=== PATIENT | female | born 1955 | race Caucasian/White ===

== ENCOUNTER 2017-08-13 06:21 | Inpatient (IN) | payer OTHER ==
[2017-08-13] MEDS ORDERED: NORepinephrine 8MG/250 ML (PMX 250 ML (06:45)
[2017-08-13 07:24] LABS: ABNORMAL IP MESSAGE 1; MEAN CORPUSCULAR HEMOGLOBIN 28.1 pg (29.0-33.0); MEAN CORPUSCULAR HGB CONC 29.1 g/dl (32.0-37.0); MEAN CORPUSCULAR VOLUME 96.5 fl (82.0-101.0); MEAN PLATELET VOLUME 9.1 fl (7.4-10.4); NUCLEATED RED BLOOD CELLS% 0.4 /100WBC (0.0-0.0); PLATELET COUNT 414 10^3/UL (140-415); RED BLOOD COUNT 2.28 10^6/ul (4.20-5.40); RED CELL DISTRIBUTION WIDTH 17.8 % (11.5-14.5)
[2017-08-13 07:24] LABS: WHITE BLOOD COUNT 25.6 10^3/ul (4.8-10.8)
[2017-08-13 07:38] LABS: ADD MAN DIFF? YES; HEMOGLOBIN 6.4 g/dl (12.0-16.0); POSITIVE DIFF @See below
[2017-08-13 07:40] LABS: ALANINE AMINOTRANSFERASE 98 IU/L (13-69); ALBUMIN 3.1 g/dl (3.3-4.9); ALBUMIN/GLOBULIN RATIO 0.72; ALKALINE PHOSPHATASE 408 IU/L (42-121); ANION GAP 26 (8-16); ASPARTATE AMINO TRANSFERASE 362 IU/L (15-46); BLOOD UREA NITROGEN 45 mg/dl (7-20); CALCIUM 12.2 mg/dl (8.4-10.2); CARBON DIOXIDE 21 mmol/L (21-31); CHLORIDE 99 mmol/L (97-110); CREATININE 4.22 mg/dl (0.44-1.00); LIPASE 99 U/L (23-300); SODIUM 140 mmol/L (135-144); TOTAL PROTEIN 7.4 g/dl (6.1-8.1)
[2017-08-13 07:49] LABS: TROPONIN-I 0.107 ng/ml (0.000-0.120)
[2017-08-13 07:57] LABS: GLUCOSE 46 mg/dl (70-220); POTASSIUM 6.2 mmol/L (3.5-5.1)
[2017-08-13] MEDS ORDERED: DEXTROSE 50% 50 ML SYRINGE IV ×4 (08:00→10:30)
[2017-08-13 08:04] LABS: ANISOCYTOSIS 1+ (0-0); BAND NEUTROPHILS #M 1.5 10^3/ul (0.0-0.6); BAND NEUTROPHILS % (M) 6 % (0-4); EOSINOPHILS % (M) 3 % (0-7); ERYTHROBLAST% (NRBC) (M) 1 % (0-0); GIANT THROMBO% (M) 2 % (0-0); LYMPHOCYTES #M 9.9 10^3/ul (0.8-2.9); LYMPHOCYTES % (M) 39 % (15-51); METAMYELOCYTES #M 0.2 10^3/ul (0.0-0.0); METAMYELOCYTES %M 1 % (0-0); MONOCYTES % (M) 8 % (0-11); MYELOCYTES #M 0.5 10^3/ul (0.0-0.0); MYELOCYTES % (M) 2 % (0-0); PLATELET ESTIMATE NORMAL; POIKILOCYTOSIS 1+ (0-0); POLYCHROMASIA 1+ (0-0); RBC MORPHOLOGY COMMENT @See below; SEG NEUT #M 10.9 10^3/ul (1.6-7.5); SEGMENTED NEUTROPHILS (M) % 41 % (39-77); SMUDGE%M 7 % (0-0); WBC MORPHOLOGY COMMENT @See below
[2017-08-13] MEDS: DEXTROSE 50% 50 ML SYRINGE IV (08:08)
[2017-08-13] MEDS: INSULIN REGULAR, HUMAN 100 UNIT/1 ML 3ML VIAL IVP (08:09)
[2017-08-13] MEDS: ALBUTEROL 0.083% (NEB) 2.5 MG/3 ML AMP HHN (08:15)
[2017-08-13] MEDS ORDERED: morphine 2 MG INJ IV (08:30)
[2017-08-13] MEDS ORDERED: ALBUTEROL HFA 8 GM INHALER INH (08:30)
[2017-08-13] MEDS ORDERED: ONDANSETRON 4 MG INJ IV (08:30)
[2017-08-13] MEDS: NORepinephrine 8MG/250 ML (PMX 250 ML IV (08:41)
[2017-08-13] MEDS: HYPOGLYCEMIA PROTOCOL when Glucose is <70 mg/dL or symptomatic <90 mg/dL. XX (09:00)
[2017-08-13] MEDS ORDERED: GLUCOSE GEL 15 GRAM TUBE BUCCAL (09:00)
[2017-08-13] MEDS ORDERED: GLUCAGON 1 MG INJ IM (09:00)
[2017-08-13] MEDS ORDERED: GLUCOSE GEL 15 GRAM TUBE PO ×2 (09:00)
[2017-08-13] MEDS: SOD CHLORIDE 0.9% 1,000 ML IV (09:30)
[2017-08-13 09:49] LABS: AADO2 Arterial 166.9 mmHg (7.0-24.0); Arterial Base Excess -1.2 mmol/L (-3.0-3); Arterial Blood Gas Oxygen Sat 99.7 mmHG (95.0-98.0); Arterial COHb 0.3 % (0.0-3.0); Arterial Fraction of Oxyhgb 98.9 % (93.0-99.0); Arterial HCO3 21.1 mmol/L (22.0-26.0); Arterial MetHb 0.5 % (0.0-1.5); Arterial pCO2 25.4 mmhg (35-45); MODE VENT - AC; Site Right Brachial
[2017-08-13 10:05] LABS: HEMOGLOBIN A1C 5.4 % (0-5.9)
[2017-08-13] MEDS ORDERED: ACETAMINOPHEN 650MG/20.3ML CUP PO (10:30)
[2017-08-13] MEDS ORDERED: ACETAMINOPHEN 650 MG SUPP PR (10:30)
[2017-08-13] MEDS ORDERED: PROPOFOL 100 ML IV (10:30)
[2017-08-13] MEDS ORDERED: Treatment of Hypoglycemia: XX (10:30)
[2017-08-13] MEDS ORDERED: MIDAZOLAM (DRIP) 50 mg/50 mL 50 ML IV (10:30)
[2017-08-13] MEDS ORDERED: MEPERIDINE 25 MG INJ IV ×2 (10:30)
[2017-08-13] MEDS: PROPOFOL 100 ML IV ×2 (11:34→18:16)
[2017-08-13] MEDS: VECURONIUM 100 MG in DEXTROSE 5% 100 ML IV (11:34)
[2017-08-13] MEDS: GABAPENTIN 100 MG CAP PO ×3 (11:58→21:00)
[2017-08-13] MEDS: ASPIRIN (EC) 81 MG TAB PO (11:58)
[2017-08-13] MEDS: Discontinue all previous diabetes medication and insulin orders. XX (11:58)
[2017-08-13] MEDS: ACCU-CHEK XX ×14 (11:59→23:30)
[2017-08-13] MEDS ORDERED: OCULAR LUBRICANT 3.5 GM OPH OINT BOTH EYES (12:00)
[2017-08-13] MEDS: ARTIFICIAL TEARS 15 ML OPH BOTH EYES ×2 (12:00→18:30)
[2017-08-13] MEDS: DEXTROSE 5%-0.45% NACL 1,000 ML IV (12:15)
[2017-08-13 12:37] LABS: WHITE BLOOD COUNT 31.3 10^3/ul (4.8-10.8)
[2017-08-13 12:37] LABS: ABNORMAL IP MESSAGE 1; HEMATOCRIT 24.1 % (37.0-47.0); HEMOGLOBIN 7.6 g/dl (12.0-16.0); MEAN CORPUSCULAR HEMOGLOBIN 28.7 pg (29.0-33.0); MEAN CORPUSCULAR HGB CONC 31.5 g/dl (32.0-37.0); MEAN CORPUSCULAR VOLUME 90.9 fl (82.0-101.0); MEAN PLATELET VOLUME 8.8 fl (7.4-10.4); NUCLEATED RED BLOOD CELLS% 0.1 /100WBC (0.0-0.0); PLATELET COUNT 396 10^3/UL (140-415); RED BLOOD COUNT 2.65 10^6/ul (4.20-5.40); RED CELL DISTRIBUTION WIDTH 16.9 % (11.5-14.5)
[2017-08-13 12:46] LABS: POSITIVE DIFF @See below
[2017-08-13 12:47] LABS: ADD MAN DIFF? YES
[2017-08-13 12:54] LABS: CREATINE KINASE 66 IU/L (23-200)
[2017-08-13 12:55] LABS: LACTATE DEHYDROGENASE 1730 IU/L (313-618); LIPASE 86 U/L (23-300)
[2017-08-13 12:56] LABS: ALANINE AMINOTRANSFERASE 150 IU/L (13-69); ALBUMIN 3.1 g/dl (3.3-4.9); ALBUMIN/GLOBULIN RATIO 0.68; ALKALINE PHOSPHATASE 420 IU/L (42-121); AMYLASE 215 U/L (11-123); ANION GAP 20 (8-16); ASPARTATE AMINO TRANSFERASE 501 IU/L (15-46); BILIRUBIN,INDIRECT 0.2 mg/dl (0-1.1); BILIRUBIN,TOTAL 0.2 mg/dl (0.2-1.3); BLOOD UREA NITROGEN 50 mg/dl (7-20); CALCIUM 9.8 mg/dl (8.4-10.2); CARBON DIOXIDE 27 mmol/L (21-31); CHLORIDE 95 mmol/L (97-110); GLUCOSE 143 mg/dl (70-220); PHOSPHORUS 8.3 mg/dl (2.5-4.9); POTASSIUM 5.4 mmol/L (3.5-5.1); SODIUM 137 mmol/L (135-144); TOTAL PROTEIN 7.6 g/dl (6.1-8.1)
[2017-08-13 12:57] LABS: PROTIME 17.4 Sec (11.9-14.9); PT RATIO 1.4
[2017-08-13 12:58] LABS: PARTIAL THROMBOPLASTIN TIME 43.1 Sec (25.0-35.0)
[2017-08-13 13:06] LABS: CK INDEX 4.5; CK-MB 2.96 ng/ml (0.0-2.4)
[2017-08-13 13:11] LABS: TROPONIN-I 0.142 ng/ml (0.000-0.120)
[2017-08-13 13:23] LABS: IRON 110 ug/dl (35-150)
[2017-08-13] MEDS: INSULIN HUMAN REGULAR 100 UNIT in SOD CHLORIDE 0.9% 99 ML IV (13:28)
[2017-08-13 13:32] LABS: % IRON SATURATION 73 % SAT (22-52); TOTAL IRON BINDING CAPACITY 151 ug/dl (241-421)
[2017-08-13 14:04] LABS: ANISOCYTOSIS 1+ (0-0); BAND NEUTROPHILS #M 0.6 10^3/ul (0.0-0.6); BAND NEUTROPHILS % (M) 2 % (0-4); GIANT THROMBO% (M) 1 % (0-0); HYPOCHROMASIA 1+ (0-0); LYMPHOCYTES #M 2.1 10^3/ul (0.8-2.9); LYMPHOCYTES % (M) 7 % (15-51); METAMYELOCYTES #M 0.3 10^3/ul (0.0-0.0); METAMYELOCYTES %M 1 % (0-0); MONOCYTE #M 1.8 10^3/ul (0.3-0.9); MONOCYTES % (M) 6 % (0-11); MYELOCYTES #M 0.3 10^3/ul (0.0-0.0); MYELOCYTES % (M) 1 % (0-0); PLATELET ESTIMATE NORMAL; POIKILOCYTOSIS 1+ (0-0); POLYCHROMASIA 1+ (0-0); SEG NEUT #M 26.5 10^3/ul (1.6-7.5); SEGMENTED NEUTROPHILS (M) % 84 % (39-77)
[2017-08-13 15:26] LABS: IMMEDIATE SPIN CROSSMATCH 1 2
[2017-08-13 17:00] LABS: AADO2 Arterial 157.1 mmHg (7.0-24.0); Arterial Base Excess 0.4 mmol/L (-3.0-3); Arterial Blood Gas Oxygen Sat 97.1 mmHG (95.0-98.0); Arterial COHb 0.3 % (0.0-3.0); Arterial Fraction of Oxyhgb 96.5 % (93.0-99.0); Arterial HCO3 21.5 mmol/L (22.0-26.0); Arterial MetHb 0.3 % (0.0-1.5); Arterial Total Hemglobin 9.2 g/dl (12.0-18.0); Arterial pCO2 19.4 mmhg (35-45); MODE VENT - AC; Site LB; Temperature 32.8 C
[2017-08-13] MEDS ORDERED: PENDING SANTYL ORDER FOR WOUND CARE XX (17:00)
[2017-08-13 18:33] LABS: ADD MAN DIFF? NO
[2017-08-13 18:35] LABS: ABNORMAL IP MESSAGE 1; BASOPHIL # 0.1 10^3/ul (0.0-0.1); BASOPHILS % 0.3 % (0.0-2.0); HEMATOCRIT 27.9 % (37.0-47.0); HEMOGLOBIN 9.5 g/dl (12.0-16.0); LYMPHOCYTES # 1.4 10^3/ul (0.8-2.9); LYMPHOCYTES % 5.3 % (15.0-51.0); MEAN CORPUSCULAR HEMOGLOBIN 29.8 pg (29.0-33.0); MEAN CORPUSCULAR HGB CONC 34.1 g/dl (32.0-37.0); MEAN CORPUSCULAR VOLUME 87.5 fl (82.0-101.0); MEAN PLATELET VOLUME 8.7 fl (7.4-10.4); MONOCYTE # 1.2 10^3/ul (0.3-0.9); MONOCYTES % 4.3 % (0.0-11.0); NEUTROPHIL # 23.7 10^3/ul (1.6-7.5); NEUTROPHILS % 87.9 % (39.0-77.0); PLATELET COUNT 399 10^3/UL (140-415); RED BLOOD COUNT 3.19 10^6/ul (4.20-5.40)
[2017-08-13 18:35] LABS: WHITE BLOOD COUNT 26.9 10^3/ul (4.8-10.8)
[2017-08-13 18:46] LABS: POSITIVE DIFF @See below
[2017-08-13 18:56] LABS: INR 1.44; PROTIME 17.8 Sec (11.9-14.9); PT RATIO 1.4
[2017-08-13 18:58] LABS: CREATINE KINASE 74 IU/L (23-200)
[2017-08-13 19:00] LABS: ALANINE AMINOTRANSFERASE 129 IU/L (13-69); ALBUMIN 2.7 g/dl (3.3-4.9); ALBUMIN/GLOBULIN RATIO 0.67; ALKALINE PHOSPHATASE 377 IU/L (42-121); AMYLASE 222 U/L (11-123); ANION GAP 18 (8-16); ASPARTATE AMINO TRANSFERASE 273 IU/L (15-46); BLOOD UREA NITROGEN 57 mg/dl (7-20); CALCIUM 9.4 mg/dl (8.4-10.2); CARBON DIOXIDE 27 mmol/L (21-31); CHLORIDE 98 mmol/L (97-110); CREATININE 4.14 mg/dl (0.44-1.00); GLUCOSE 188 mg/dl (70-220); LACTATE DEHYDROGENASE 1147 IU/L (313-618); LIPASE 46 U/L (23-300); POTASSIUM 4.7 mmol/L (3.5-5.1); SODIUM 138 mmol/L (135-144); TOTAL PROTEIN 6.7 g/dl (6.1-8.1)
[2017-08-13 19:13] LABS: CK INDEX 5.1; CK-MB 3.76 ng/ml (0.0-2.4); TROPONIN-I 0.112 ng/ml (0.000-0.120)
[2017-08-13 22:14] LABS: Arterial Base Excess -0.7 mmol/L (-3.0-3); Arterial Blood Gas Oxygen Sat 99.6 mmHG (95.0-98.0); Arterial COHb 0.3 % (0.0-3.0); Arterial HCO3 21.2 mmol/L (22.0-26.0); Arterial MetHb 0.3 % (0.0-1.5); Arterial Total Hemglobin 10.8 g/dl (12.0-18.0); Arterial pCO2 22.2 mmhg (35-45); MODE VENT - AC; Site Right Brachial; Temperature 32.9 C
[2017-08-13 22:31] LABS: ADD MAN DIFF? NO
[2017-08-13 22:36] LABS: WHITE BLOOD COUNT 27.7 10^3/ul (4.8-10.8)
[2017-08-13 22:36] LABS: ABNORMAL IP MESSAGE 1; BASOPHIL # 0.1 10^3/ul (0.0-0.1); BASOPHILS % 0.3 % (0.0-2.0); HEMATOCRIT 28.5 % (37.0-47.0); HEMOGLOBIN 9.6 g/dl (12.0-16.0); LYMPHOCYTES # 1.6 10^3/ul (0.8-2.9); LYMPHOCYTES % 5.6 % (15.0-51.0); MEAN CORPUSCULAR HEMOGLOBIN 29.4 pg (29.0-33.0); MEAN CORPUSCULAR HGB CONC 33.7 g/dl (32.0-37.0); MEAN CORPUSCULAR VOLUME 87.4 fl (82.0-101.0); MEAN PLATELET VOLUME 8.8 fl (7.4-10.4); MONOCYTE # 1.7 10^3/ul (0.3-0.9); MONOCYTES % 6.3 % (0.0-11.0); NEUTROPHIL # 23.7 10^3/ul (1.6-7.5); NEUTROPHILS % 85.5 % (39.0-77.0); PLATELET COUNT 416 10^3/UL (140-415); RED BLOOD COUNT 3.26 10^6/ul (4.20-5.40); RED CELL DISTRIBUTION WIDTH 16.2 % (11.5-14.5)
[2017-08-13 22:39] LABS: POSITIVE DIFF @See below
[2017-08-13 22:57] LABS: MAGNESIUM 2.1 mg/dl (1.7-2.5)
[2017-08-13 22:57] LABS: LACTATE DEHYDROGENASE 880 IU/L (313-618); LIPASE 39 U/L (23-300)
[2017-08-13] MEDS: ALBUMIN HUMAN 25% 100 ML IV (23:52)
[2017-08-13] MEDS: FUROSEMIDE 40 MG INJ IV (23:53)
[2017-08-13] MEDS: SOD CHLORIDE 0.9% 500 ML IV (23:54)
[2017-08-14] MEDS: ACCU-CHEK XX ×24 (00:30→23:30)
[2017-08-14] MEDS: DEXTROSE 5%-0.45% NACL 1,000 ML IV ×3 (00:56→11:10)
[2017-08-14] MEDS: ARTIFICIAL TEARS 15 ML OPH BOTH EYES ×4 (00:56→18:04)
[2017-08-14] MEDS: PROPOFOL 100 ML IV ×3 (00:57→11:17)
[2017-08-14 01:13] LABS: CREATINE KINASE 61 IU/L (23-200)
[2017-08-14 01:17] LABS: ALANINE AMINOTRANSFERASE 101 IU/L (13-69); ALBUMIN 2.9 g/dl (3.3-4.9); ALBUMIN/GLOBULIN RATIO 0.74; ALKALINE PHOSPHATASE 295 IU/L (42-121); AMYLASE 201 U/L (11-123); ANION GAP 18 (8-16); ASPARTATE AMINO TRANSFERASE 147 IU/L (15-46); BLOOD UREA NITROGEN 59 mg/dl (7-20); CALCIUM 9.3 mg/dl (8.4-10.2); CARBON DIOXIDE 26 mmol/L (21-31); CHLORIDE 98 mmol/L (97-110); CREATININE 4.18 mg/dl (0.44-1.00); GLUCOSE 84 mg/dl (70-220); PHOSPHORUS 7.3 mg/dl (2.5-4.9); POTASSIUM 4.6 mmol/L (3.5-5.1); SODIUM 137 mmol/L (135-144); TOTAL PROTEIN 6.8 g/dl (6.1-8.1)
[2017-08-14 01:18] LABS: INR 1.53; PROTIME 18.7 Sec (11.9-14.9); PT RATIO 1.5
[2017-08-14 01:19] LABS: PARTIAL THROMBOPLASTIN TIME 43.2 Sec (25.0-35.0)
[2017-08-14 01:27] LABS: CK INDEX 5.8; CK-MB 3.53 ng/ml (0.0-2.4); TROPONIN-I 0.086 ng/ml (0.000-0.120)
[2017-08-14 04:26] LABS: AADO2 Arterial 263.3 mmHg (7.0-24.0); Arterial Base Excess -4.2 mmol/L (-3.0-3); Arterial Blood Gas Oxygen Sat 99.5 mmHG (95.0-98.0); Arterial COHb 0.3 % (0.0-3.0); Arterial Fraction of Oxyhgb 98.8 % (93.0-99.0); Arterial HCO3 21.8 mmol/L (22.0-26.0); Arterial MetHb 0.4 % (0.0-1.5); Arterial Total Hemglobin 9.4 g/dl (12.0-18.0); Arterial pCO2 36.9 mmhg (35-45); MODE VENT - AC; Site Right Brachial; Temperature 33.1 C
[2017-08-14 05:14] LABS: ADD MAN DIFF? NO
[2017-08-14 05:19] LABS: ABNORMAL IP MESSAGE 1; BASOPHIL # 0.1 10^3/ul (0.0-0.1); BASOPHILS % 0.3 % (0.0-2.0); EOSINOPHILS # 0.1 10^3/ul (0.0-0.5); EOSINOPHILS % 0.3 % (0.0-7.0); HEMATOCRIT 25.3 % (37.0-47.0); HEMOGLOBIN 8.5 g/dl (12.0-16.0); LYMPHOCYTES # 1.3 10^3/ul (0.8-2.9); LYMPHOCYTES % 4.8 % (15.0-51.0); MEAN CORPUSCULAR HEMOGLOBIN 29.8 pg (29.0-33.0); MEAN CORPUSCULAR HGB CONC 33.6 g/dl (32.0-37.0); MEAN CORPUSCULAR VOLUME 88.8 fl (82.0-101.0); MEAN PLATELET VOLUME 8.9 fl (7.4-10.4); MONOCYTE # 1.9 10^3/ul (0.3-0.9); NEUTROPHIL # 23.8 10^3/ul (1.6-7.5); PLATELET COUNT 350 10^3/UL (140-415); RED BLOOD COUNT 2.85 10^6/ul (4.20-5.40); RED CELL DISTRIBUTION WIDTH 16.3 % (11.5-14.5)
[2017-08-14 05:19] LABS: WHITE BLOOD COUNT 27.7 10^3/ul (4.8-10.8)
[2017-08-14 05:39] LABS: URIC ACID 6.2 mg/dl (3.1-7.9)
[2017-08-14 05:41] LABS: INR 1.56; PARTIAL THROMBOPLASTIN TIME 48.6 Sec (25.0-35.0); PT RATIO 1.5
[2017-08-14 05:45] LABS: MAGNESIUM 1.9 mg/dl (1.7-2.5)
[2017-08-14 05:45] LABS: LACTATE DEHYDROGENASE 663 IU/L (313-618); LIPASE 16 U/L (23-300)
[2017-08-14 05:53] LABS: POSITIVE DIFF @See below
[2017-08-14 06:02] LABS: ALANINE AMINOTRANSFERASE 82 IU/L (13-69); ALBUMIN 2.5 g/dl (3.3-4.9); ALBUMIN/GLOBULIN RATIO 0.71; ALKALINE PHOSPHATASE 268 IU/L (42-121); AMYLASE 178 U/L (11-123); ANION GAP 16 (8-16); ASPARTATE AMINO TRANSFERASE 116 IU/L (15-46); BLOOD UREA NITROGEN 58 mg/dl (7-20); CALCIUM 8.8 mg/dl (8.4-10.2); CARBON DIOXIDE 27 mmol/L (21-31); CHLORIDE 97 mmol/L (97-110); CREATININE 4.11 mg/dl (0.44-1.00); GLUCOSE 129 mg/dl (70-220); HDL CHOLESTEROL 16 mg/dl (35-98); PHOSPHORUS 7.4 mg/dl (2.5-4.9); POTASSIUM 4.4 mmol/L (3.5-5.1); SODIUM 136 mmol/L (135-144); TRIGLYCERIDES 41 mg/dl (0-149)
[2017-08-14 06:04] LABS: CHOLESTEROL < 50 mg/dl (100-200)
[2017-08-14] MEDS: DEXTROSE 50% 50 ML SYRINGE IV (08:09)
[2017-08-14] MEDS: ASPIRIN (EC) 81 MG TAB PO (08:12)
[2017-08-14] MEDS: GABAPENTIN 100 MG CAP PO ×3 (08:12→21:00)
[2017-08-14] MEDS: MULTIVIT/CA CARB/B CMPLX/FA TAB PO (08:12)
[2017-08-14] MEDS: FAMOTIDINE 20 MG INJ IV (08:15)
[2017-08-14] MEDS ORDERED: VANCOMYCIN IV PER PHARMACY XX (09:30)
[2017-08-14] MEDS: VANCOMYCIN 1 GM 250 ML IVPB (09:48)
[2017-08-14] MEDS: VECURONIUM 100 MG in DEXTROSE 5% 100 ML IV (09:59)
[2017-08-14 10:18] LABS: ADD MAN DIFF? NO
[2017-08-14 10:19] LABS: WHITE BLOOD COUNT 26.6 10^3/ul (4.8-10.8)
[2017-08-14 10:20] LABS: ABNORMAL IP MESSAGE 1; BASOPHIL # 0.1 10^3/ul (0.0-0.1); BASOPHILS % 0.3 % (0.0-2.0); EOSINOPHILS # 0.1 10^3/ul (0.0-0.5); EOSINOPHILS % 0.4 % (0.0-7.0); HEMATOCRIT 25.9 % (37.0-47.0); HEMOGLOBIN 8.5 g/dl (12.0-16.0); LYMPHOCYTES # 1.3 10^3/ul (0.8-2.9); LYMPHOCYTES % 4.7 % (15.0-51.0); MEAN CORPUSCULAR HEMOGLOBIN 28.8 pg (29.0-33.0); MEAN CORPUSCULAR HGB CONC 32.8 g/dl (32.0-37.0); MEAN CORPUSCULAR VOLUME 87.8 fl (82.0-101.0); MEAN PLATELET VOLUME 8.5 fl (7.4-10.4); MONOCYTE # 1.1 10^3/ul (0.3-0.9); MONOCYTES % 4.1 % (0.0-11.0); NEUTROPHIL # 23.8 10^3/ul (1.6-7.5); NEUTROPHILS % 89.3 % (39.0-77.0); PLATELET COUNT 331 10^3/UL (140-415); RED BLOOD COUNT 2.95 10^6/ul (4.20-5.40); RED CELL DISTRIBUTION WIDTH 16.5 % (11.5-14.5)
[2017-08-14] MEDS ORDERED: ACETAMINOPHEN 650MG/20.3ML CUP PO (10:30)
[2017-08-14 10:37] LABS: INR 1.49; PROTIME 18.3 Sec (11.9-14.9); PT RATIO 1.4
[2017-08-14 10:38] LABS: PARTIAL THROMBOPLASTIN TIME 46.8 Sec (25.0-35.0)
[2017-08-14 10:41] LABS: ALANINE AMINOTRANSFERASE 70 IU/L (13-69); ALBUMIN 2.5 g/dl (3.3-4.9); ALBUMIN/GLOBULIN RATIO 0.67; ALKALINE PHOSPHATASE 256 IU/L (42-121); AMYLASE 166 U/L (11-123); ANION GAP 19 (8-16); ASPARTATE AMINO TRANSFERASE 93 IU/L (15-46); BILIRUBIN,INDIRECT 0.1 mg/dl (0-1.1); BILIRUBIN,TOTAL 0.1 mg/dl (0.2-1.3); BLOOD UREA NITROGEN 58 mg/dl (7-20); CALCIUM 8.7 mg/dl (8.4-10.2); CARBON DIOXIDE 25 mmol/L (21-31); CHLORIDE 95 mmol/L (97-110); CREATININE 4.14 mg/dl (0.44-1.00); GLUCOSE 129 mg/dl (70-220); PHOSPHORUS 7.9 mg/dl (2.5-4.9); POTASSIUM 4.6 mmol/L (3.5-5.1); SODIUM 134 mmol/L (135-144); TOTAL PROTEIN 6.2 g/dl (6.1-8.1)
[2017-08-14 10:43] LABS: LACTATE DEHYDROGENASE 501 IU/L (313-618); LIPASE 21 U/L (23-300)
[2017-08-14 10:43] LABS: MAGNESIUM 1.9 mg/dl (1.7-2.5)
[2017-08-14 11:01] LABS: AADO2 Arterial 196.7 mmHg (7.0-24.0); Arterial Base Excess -3.6 mmol/L (-3.0-3); Arterial COHb 0.3 % (0.0-3.0); Arterial Fraction of Oxyhgb 98.4 % (93.0-99.0); Arterial HCO3 22.6 mmol/L (22.0-26.0); Arterial MetHb 0.3 % (0.0-1.5); Arterial Total Hemglobin 10.5 g/dl (12.0-18.0); Arterial pCO2 38.1 mmhg (35-45); MODE VENT - AC; Site Right Brachial
[2017-08-14] MEDS: ACETAMINOPHEN 650 MG SUPP PR ×3 (11:10→23:45)
[2017-08-14] MEDS: SOD CHLORIDE 0.9% 1,000 ML IV (11:27)
[2017-08-14 12:21] LABS: TROPONIN-I 0.073 ng/ml (0.000-0.120)
[2017-08-14] MEDS ORDERED: SOD CHLORIDE 0.9% 1,000 ML IV (16:02)
[2017-08-14 16:24] LABS: ADD MAN DIFF? NO
[2017-08-14 16:28] LABS: BASOPHIL # 0.1 10^3/ul (0.0-0.1); BASOPHILS % 0.2 % (0.0-2.0); EOSINOPHILS # 0.1 10^3/ul (0.0-0.5); EOSINOPHILS % 0.4 % (0.0-7.0); HEMATOCRIT 26.8 % (37.0-47.0); HEMOGLOBIN 8.9 g/dl (12.0-16.0); LYMPHOCYTES # 1.1 10^3/ul (0.8-2.9); LYMPHOCYTES % 4.3 % (15.0-51.0); MEAN CORPUSCULAR HEMOGLOBIN 29.1 pg (29.0-33.0); MEAN CORPUSCULAR HGB CONC 33.2 g/dl (32.0-37.0); MEAN CORPUSCULAR VOLUME 87.6 fl (82.0-101.0); MEAN PLATELET VOLUME 8.5 fl (7.4-10.4); MONOCYTE # 1.3 10^3/ul (0.3-0.9); NEUTROPHIL # 22.8 10^3/ul (1.6-7.5); NEUTROPHILS % 89.1 % (39.0-77.0); PLATELET COUNT 344 10^3/UL (140-415); RED BLOOD COUNT 3.06 10^6/ul (4.20-5.40); RED CELL DISTRIBUTION WIDTH 16.8 % (11.5-14.5)
[2017-08-14] MEDS ORDERED: ALBUMIN HUMAN 25% 100 ML IV (16:30)
[2017-08-14 16:31] LABS: AADO2 Arterial 149.1 mmHg (7.0-24.0); Arterial Base Excess -3.6 mmol/L (-3.0-3); Arterial COHb 0.3 % (0.0-3.0); Arterial Fraction of Oxyhgb 97.6 % (93.0-99.0); Arterial HCO3 20.5 mmol/L (22.0-26.0); Arterial MetHb 0.1 % (0.0-1.5); Arterial Total Hemglobin 10.1 g/dl (12.0-18.0); Arterial pCO2 29.3 mmhg (35-45); MODE VENT - AC; Site Right Brachial; Temperature 33.9 C
[2017-08-14 16:32] LABS: WHITE BLOOD COUNT 25.6 10^3/ul (4.8-10.8)
[2017-08-14 16:53] LABS: INR 1.44; PROTIME 17.8 Sec (11.9-14.9); PT RATIO 1.4
[2017-08-14 16:54] LABS: PARTIAL THROMBOPLASTIN TIME 48.1 Sec (25.0-35.0)
[2017-08-14 16:55] LABS: MAGNESIUM 1.8 mg/dl (1.7-2.5)
[2017-08-14 16:55] LABS: ALANINE AMINOTRANSFERASE 70 IU/L (13-69); ALBUMIN 2.6 g/dl (3.3-4.9); ALBUMIN/GLOBULIN RATIO 0.68; ALKALINE PHOSPHATASE 259 IU/L (42-121); AMYLASE 151 U/L (11-123); ANION GAP 19 (8-16); ASPARTATE AMINO TRANSFERASE 74 IU/L (15-46); BILIRUBIN,INDIRECT 0.1 mg/dl (0-1.1); BILIRUBIN,TOTAL 0.1 mg/dl (0.2-1.3); BLOOD UREA NITROGEN 55 mg/dl (7-20); CALCIUM 8.5 mg/dl (8.4-10.2); CARBON DIOXIDE 21 mmol/L (21-31); CHLORIDE 97 mmol/L (97-110); CREATININE 4.11 mg/dl (0.44-1.00); GLUCOSE 103 mg/dl (70-220); LACTATE DEHYDROGENASE 431 IU/L (313-618); LIPASE 20 U/L (23-300); POTASSIUM 5.2 mmol/L (3.5-5.1); SODIUM 132 mmol/L (135-144); TOTAL PROTEIN 6.4 g/dl (6.1-8.1)
[2017-08-14 17:06] LABS: TROPONIN-I 0.066 ng/ml (0.000-0.120)
[2017-08-14 22:49] LABS: ADD MAN DIFF? NO
[2017-08-14 22:52] LABS: BASOPHIL # 0.1 10^3/ul (0.0-0.1); BASOPHILS % 0.3 % (0.0-2.0); EOSINOPHILS # 0.1 10^3/ul (0.0-0.5); EOSINOPHILS % 0.2 % (0.0-7.0); HEMATOCRIT 27.4 % (37.0-47.0); LYMPHOCYTES # 1.1 10^3/ul (0.8-2.9); LYMPHOCYTES % 4.8 % (15.0-51.0); MEAN CORPUSCULAR HEMOGLOBIN 28.8 pg (29.0-33.0); MEAN CORPUSCULAR HGB CONC 32.8 g/dl (32.0-37.0); MEAN CORPUSCULAR VOLUME 87.8 fl (82.0-101.0); MEAN PLATELET VOLUME 8.9 fl (7.4-10.4); MONOCYTE # 1.2 10^3/ul (0.3-0.9); MONOCYTES % 5.4 % (0.0-11.0); NEUTROPHIL # 19.5 10^3/ul (1.6-7.5); NEUTROPHILS % 88.5 % (39.0-77.0); PLATELET COUNT 370 10^3/UL (140-415); RED BLOOD COUNT 3.12 10^6/ul (4.20-5.40); RED CELL DISTRIBUTION WIDTH 16.8 % (11.5-14.5)
[2017-08-14 23:10] LABS: LACTATE DEHYDROGENASE 414 IU/L (313-618); LIPASE 15 U/L (23-300)
[2017-08-14 23:10] LABS: MAGNESIUM 1.8 mg/dl (1.7-2.5)
[2017-08-15 00:19] LABS: AADO2 Arterial 130.5 mmHg (7.0-24.0); Arterial Base Excess -3.4 mmol/L (-3.0-3); Arterial Blood Gas Oxygen Sat 98.4 mmHG (95.0-98.0); Arterial COHb 0.3 % (0.0-3.0); Arterial Fraction of Oxyhgb 97.8 % (93.0-99.0); Arterial HCO3 19.6 mmol/L (22.0-26.0); Arterial MetHb 0.3 % (0.0-1.5); Arterial Total Hemglobin 10.1 g/dl (12.0-18.0); Arterial pCO2 27.6 mmhg (35-45); MODE VENT - AC; Site Right Brachial; Temperature 36.1 C
[2017-08-15] MEDS: ACETAMINOPHEN 650 MG SUPP PR ×4 (00:25→18:46)
[2017-08-15] MEDS: ARTIFICIAL TEARS 15 ML OPH BOTH EYES ×4 (00:40→18:46)
[2017-08-15] MEDS: ACCU-CHEK XX ×17 (01:11→15:52)
[2017-08-15] MEDS: DEXTROSE 5%-0.45% NACL 1,000 ML IV ×2 (01:13→13:31)
[2017-08-15 01:28] LABS: TROPONIN-I 0.079 ng/ml (0.000-0.120)
[2017-08-15 05:40] LABS: ADD MAN DIFF? NO
[2017-08-15 05:53] LABS: BASOPHIL # 0.1 10^3/ul (0.0-0.1); BASOPHILS % 0.2 % (0.0-2.0); EOSINOPHILS % 0.1 % (0.0-7.0); HEMATOCRIT 27.6 % (37.0-47.0); HEMOGLOBIN 9.2 g/dl (12.0-16.0); LYMPHOCYTES % 4.7 % (15.0-51.0); MEAN CORPUSCULAR HGB CONC 33.3 g/dl (32.0-37.0); MEAN CORPUSCULAR VOLUME 87.1 fl (82.0-101.0); MONOCYTE # 1.4 10^3/ul (0.3-0.9); MONOCYTES % 6.6 % (0.0-11.0); NEUTROPHIL # 18.7 10^3/ul (1.6-7.5); NEUTROPHILS % 87.6 % (39.0-77.0); NUCLEATED RED BLOOD CELLS% 0.1 /100WBC (0.0-0.0); PLATELET COUNT 400 10^3/UL (140-415); RED BLOOD COUNT 3.17 10^6/ul (4.20-5.40)
[2017-08-15 05:53] LABS: WHITE BLOOD COUNT 21.3 10^3/ul (4.8-10.8)
[2017-08-15 06:02] LABS: AADO2 Arterial 113.2 mmHg (7.0-24.0); Arterial Base Excess -4.5 mmol/L (-3.0-3); Arterial COHb 0 % (0.0-3.0); Arterial Fraction of Oxyhgb 97.6 % (93.0-99.0); Arterial HCO3 17.8 mmol/L (22.0-26.0); Arterial MetHb 0.4 % (0.0-1.5); Arterial Total Hemglobin 10.1 g/dl (12.0-18.0); Arterial pCO2 24.5 mmhg (35-45); MODE VENT - AC; Site Right Brachial
[2017-08-15 07:01] LABS: ALANINE AMINOTRANSFERASE 62 IU/L (13-69); ALBUMIN 2.7 g/dl (3.3-4.9); ALBUMIN/GLOBULIN RATIO 0.67; ALKALINE PHOSPHATASE 278 IU/L (42-121); ANION GAP 20 (8-16); ASPARTATE AMINO TRANSFERASE 61 IU/L (15-46); BILIRUBIN,INDIRECT 0.1 mg/dl (0-1.1); BILIRUBIN,TOTAL 0.1 mg/dl (0.2-1.3); BLOOD UREA NITROGEN 58 mg/dl (7-20); CALCIUM 8.4 mg/dl (8.4-10.2); CARBON DIOXIDE 21 mmol/L (21-31); CHLORIDE 96 mmol/L (97-110); CREATININE 4.47 mg/dl (0.44-1.00); GLUCOSE 109 mg/dl (70-220); MAGNESIUM 1.9 mg/dl (1.7-2.5); POTASSIUM 5.8 mmol/L (3.5-5.1); SODIUM 131 mmol/L (135-144); TOTAL PROTEIN 6.7 g/dl (6.1-8.1)
[2017-08-15 07:09] LABS: TROPONIN-I 0.103 ng/ml (0.000-0.120)
[2017-08-15] MEDS: VECURONIUM 100 MG in DEXTROSE 5% 100 ML IV (07:50)
[2017-08-15] MEDS: CEFEPIME 1GM/50 ML (PMX) 50 ML IVPB ×2 (09:00→09:14)
[2017-08-15] MEDS: GABAPENTIN 100 MG CAP PO ×3 (09:13→20:44)
[2017-08-15] MEDS: ASPIRIN (EC) 81 MG TAB PO (09:13)
[2017-08-15] MEDS: MULTIVIT/CA CARB/B CMPLX/FA TAB PO (09:13)
[2017-08-15] MEDS: FAMOTIDINE 20 MG INJ IV (09:21)
[2017-08-15] MEDS: BALSAM PERU/CASTOR OIL 60 GM TUBE TOP (09:21)
[2017-08-15] MEDS: PROPOFOL 100 ML IV ×2 (09:24→23:30)
[2017-08-15] MEDS: INSULIN HUMAN REGULAR 100 UNIT in SOD CHLORIDE 0.9% 99 ML IV (12:05)
[2017-08-15 12:37] LABS: ADD UMIC YES; UR ASCORBIC ACID NEGATIVE (NEGATIVE); UR BACTERIA FEW /HPF (NONE SEEN); UR BILIRUBIN (Dip) NEGATIVE (NEGATIVE); UR BLOOD (Dip) 1+ mg/dL (NEGATIVE); UR CLARITY TURBID (CLEAR); UR COLOR YELLOW (YELLOW); UR GLUCOSE (Dip) NEGATIVE (NEGATIVE); UR KETONES (Dip) NEGATIVE (NEGATIVE); UR LEUKOCYTE ESTERASE (Dip) 3+ Leu/ul (NEGATIVE); UR MUCUS FEW /HPF (NONE SEEN); UR NITRITE (Dip) NEGATIVE (NEGATIVE); UR NONSQUAMOUS EPITHELIAL CELL 7 /HPF (NONE SEEN); UR RBC 0 /HPF (0-5); UR SPECIFIC GRAVITY (Dip) 1.011 (1.003-1.030); UR TOTAL PROTEIN (Dip) 2+ mg/dl (NEGATIVE); UR UROBILINOGEN (Dip) NEGATIVE (NEGATIVE); UR WBC > 182 /HPF (0-5)
[2017-08-15] MEDS: HEPARIN 1000 UNITS/ML 10 ML INJ CATHETER (12:37)
[2017-08-15 12:47] LABS: CREATININE,URINE RANDOM 30.18 mg/dl (20-320); PROTEIN/CREAT RATIO 6.59 RATIO
[2017-08-15 13:11] LABS: SODIUM,URINE RANDOM 55 mmol/L (30-90)
[2017-08-15 13:33] LABS: TROPONIN-I 0.096 ng/ml (0.000-0.120)
[2017-08-15] MEDS: INSULIN ASPART [NOVOLOG] 3 ML PEN SC ×2 (17:00→20:50)
[2017-08-15] MEDS ORDERED: LORAZEPAM 2 MG INJ IV (19:00)
[2017-08-15 19:22] LABS: TROPONIN-I 0.103 ng/ml (0.000-0.120)
[2017-08-15] MEDS: LEVETIRACETAM 500 MG (PMX) 100 ML IVPB (19:53)
[2017-08-16] MEDS: ARTIFICIAL TEARS 15 ML OPH BOTH EYES ×3 (00:40→12:24)
[2017-08-16] MEDS: INSULIN ASPART [NOVOLOG] 3 ML PEN SC ×6 (00:52→20:26)
[2017-08-16] MEDS: DEXTROSE 5%-0.45% NACL 1,000 ML IV ×2 (03:54→16:19)
[2017-08-16 05:20] LABS: ADD MAN DIFF? NO
[2017-08-16 05:22] LABS: ABNORMAL IP MESSAGE 1; BASOPHIL # 0.1 10^3/ul (0.0-0.1); BASOPHILS % 0.4 % (0.0-2.0); EOSINOPHILS % 0.2 % (0.0-7.0); HEMATOCRIT 22.4 % (37.0-47.0); HEMOGLOBIN 7.1 g/dl (12.0-16.0); LYMPHOCYTES # 1.4 10^3/ul (0.8-2.9); LYMPHOCYTES % 6.6 % (15.0-51.0); MEAN CORPUSCULAR HEMOGLOBIN 28.5 pg (29.0-33.0); MEAN CORPUSCULAR HGB CONC 31.7 g/dl (32.0-37.0); MEAN PLATELET VOLUME 9.2 fl (7.4-10.4); MONOCYTE # 2.1 10^3/ul (0.3-0.9); MONOCYTES % 10.1 % (0.0-11.0); NEUTROPHIL # 17.2 10^3/ul (1.6-7.5); NUCLEATED RED BLOOD CELLS% 0.1 /100WBC (0.0-0.0); PLATELET COUNT 323 10^3/UL (140-415); RED BLOOD COUNT 2.49 10^6/ul (4.20-5.40); RED CELL DISTRIBUTION WIDTH 17.2 % (11.5-14.5)
[2017-08-16 05:46] LABS: VANCOMYCIN,RANDOM 8.9 ug/ml
[2017-08-16 05:56] LABS: ALANINE AMINOTRANSFERASE 47 IU/L (13-69); ALBUMIN 2.3 g/dl (3.3-4.9); ALBUMIN/GLOBULIN RATIO 0.63; ALKALINE PHOSPHATASE 255 IU/L (42-121); ANION GAP 15 (8-16); ASPARTATE AMINO TRANSFERASE 41 IU/L (15-46); BLOOD UREA NITROGEN 34 mg/dl (7-20); CALCIUM 7.9 mg/dl (8.4-10.2); CARBON DIOXIDE 26 mmol/L (21-31); CHLORIDE 102 mmol/L (97-110); CREATININE 3.21 mg/dl (0.44-1.00); GLUCOSE 123 mg/dl (70-220); MAGNESIUM 1.9 mg/dl (1.7-2.5); POTASSIUM 4.5 mmol/L (3.5-5.1); SODIUM 138 mmol/L (135-144); TOTAL PROTEIN 5.9 g/dl (6.1-8.1)
[2017-08-16 06:00] LABS: AADO2 Arterial 68.6 mmHg (7.0-24.0); Arterial Base Excess -0.3 mmol/L (-3.0-3); Arterial Blood Gas Oxygen Sat 97.5 mmHG (95.0-98.0); Arterial COHb 0.6 % (0.0-3.0); Arterial Fraction of Oxyhgb 96.8 % (93.0-99.0); Arterial HCO3 23.9 mmol/L (22.0-26.0); Arterial MetHb 0.1 % (0.0-1.5); Arterial Total Hemglobin 8.5 g/dl (12.0-18.0); Arterial pCO2 36.7 mmhg (35-45); MODE VENT - AC; Site Right Brachial
[2017-08-16 06:09] LABS: POSITIVE DIFF @See below
[2017-08-16] MEDS ORDERED: LEVETIRACETAM 500 MG (PMX) 100 ML IVPB (09:00)
[2017-08-16] MEDS: NIFEdipine (XL) 60 MG TAB PO (09:00)
[2017-08-16] MEDS: BALSAM PERU/CASTOR OIL 60 GM TUBE TOP ×2 (09:00→22:22)
[2017-08-16] MEDS: MULTIVIT/CA CARB/B CMPLX/FA TAB PO (09:12)
[2017-08-16] MEDS: FAMOTIDINE 20 MG TAB PO (09:12)
[2017-08-16] MEDS: ASPIRIN (EC) 81 MG TAB PO (09:12)
[2017-08-16] MEDS: VANCOMYCIN 1 GM 250 ML IVPB (09:12)
[2017-08-16] MEDS: CLOPIDOGREL 75 MG TAB PO (09:12)
[2017-08-16] MEDS: GABAPENTIN 100 MG CAP PO ×3 (09:12→20:21)
[2017-08-16] MEDS: CEFEPIME 1GM/50 ML (PMX) 50 ML IVPB (09:12)
[2017-08-16] MEDS: PROPOFOL 100 ML IV ×2 (11:30→23:30)
[2017-08-16 12:28] LABS: HEMATOCRIT 23.6 % (37.0-47.0); HEMOGLOBIN 7.5 g/dl (12.0-16.0)
[2017-08-17] MEDS: INSULIN ASPART [NOVOLOG] 3 ML PEN SC ×6 (00:46→21:00)
[2017-08-17] MEDS: ACETAMINOPHEN 650MG/20.3ML CUP PO (01:04)
[2017-08-17 05:33] LABS: OCCULT BLOOD STOOL NEGATIVE (NEGATIVE)
[2017-08-17 05:34] LABS: ADD MAN DIFF? NO
[2017-08-17 05:38] LABS: ABNORMAL IP MESSAGE 1; BASOPHIL # 0.1 10^3/ul (0.0-0.1); BASOPHILS % 0.5 % (0.0-2.0); EOSINOPHILS # 0.2 10^3/ul (0.0-0.5); EOSINOPHILS % 0.8 % (0.0-7.0); HEMATOCRIT 21.8 % (37.0-47.0); LYMPHOCYTES # 1.5 10^3/ul (0.8-2.9); LYMPHOCYTES % 6.5 % (15.0-51.0); MEAN CORPUSCULAR HEMOGLOBIN 28.6 pg (29.0-33.0); MEAN CORPUSCULAR HGB CONC 31.7 g/dl (32.0-37.0); MEAN CORPUSCULAR VOLUME 90.5 fl (82.0-101.0); MEAN PLATELET VOLUME 9.1 fl (7.4-10.4); MONOCYTE # 2.4 10^3/ul (0.3-0.9); MONOCYTES % 10.4 % (0.0-11.0); NEUTROPHIL # 18.8 10^3/ul (1.6-7.5); NEUTROPHILS % 80.7 % (39.0-77.0); PLATELET COUNT 322 10^3/UL (140-415); RED BLOOD COUNT 2.41 10^6/ul (4.20-5.40)
[2017-08-17 05:38] LABS: WHITE BLOOD COUNT 23.3 10^3/ul (4.8-10.8)
[2017-08-17 05:45] LABS: HEMOGLOBIN 6.9 g/dl (12.0-16.0); POSITIVE DIFF @See below
[2017-08-17 06:05] LABS: ALANINE AMINOTRANSFERASE 42 IU/L (13-69); ALBUMIN 2.3 g/dl (3.3-4.9); ALBUMIN/GLOBULIN RATIO 0.65; ALKALINE PHOSPHATASE 241 IU/L (42-121); ANION GAP 16 (8-16); ASPARTATE AMINO TRANSFERASE 50 IU/L (15-46); BLOOD UREA NITROGEN 43 mg/dl (7-20); CARBON DIOXIDE 25 mmol/L (21-31); CHLORIDE 100 mmol/L (97-110); CREATININE 4.03 mg/dl (0.44-1.00); GLUCOSE 150 mg/dl (70-220); MAGNESIUM 1.9 mg/dl (1.7-2.5); POTASSIUM 4.5 mmol/L (3.5-5.1); SODIUM 136 mmol/L (135-144); TOTAL PROTEIN 5.8 g/dl (6.1-8.1)
[2017-08-17 06:30] LABS: HEPATITIS B SURFACE ANTIGEN NEGATIVE (NEGATIVE)
[2017-08-17 06:47] LABS: HEPATITIS B SURFACE ANTIBODY POSITIVE (NEGATIVE); HEPATITIS C VIRAL ANTIBODY NEGATIVE (NEGATIVE)
[2017-08-17 07:00] LABS: HIV 1&2 ANTIBODY NEGATIVE (NEGATIVE)
[2017-08-17] MEDS: CEFEPIME 1GM/50 ML (PMX) 50 ML IVPB (08:14)
[2017-08-17] MEDS: ASPIRIN (EC) 81 MG TAB PO (08:15)
[2017-08-17] MEDS: GABAPENTIN 100 MG CAP PO ×3 (08:15→22:18)
[2017-08-17] MEDS: MULTIVIT/CA CARB/B CMPLX/FA TAB PO (08:15)
[2017-08-17] MEDS: CLOPIDOGREL 75 MG TAB PO (08:15)
[2017-08-17] MEDS: NIFEdipine (XL) 60 MG TAB PO (08:16)
[2017-08-17] MEDS: FAMOTIDINE 20 MG TAB PO (08:16)
[2017-08-17 08:30] LABS: IMMEDIATE SPIN CROSSMATCH 1 1
[2017-08-17] MEDS: BALSAM PERU/CASTOR OIL 60 GM TUBE TOP ×2 (09:00→22:21)
[2017-08-17] MEDS: PROPOFOL 100 ML IV ×2 (10:17→23:30)
[2017-08-17 14:59] LABS: HEMATOCRIT 27.8 % (37.0-47.0); HEMOGLOBIN 9.1 g/dl (12.0-16.0)
[2017-08-17] MEDS ORDERED: LABETALOL HCL 20MG INJ IV (18:00)
[2017-08-18] MEDS: INSULIN ASPART [NOVOLOG] 3 ML PEN SC ×5 (01:00→17:00)
[2017-08-18 05:31] LABS: ADD MAN DIFF? NO
[2017-08-18 05:36] LABS: WHITE BLOOD COUNT 24.2 10^3/ul (4.8-10.8)
[2017-08-18 05:36] LABS: ABNORMAL IP MESSAGE 1; BASOPHIL # 0.1 10^3/ul (0.0-0.1); BASOPHILS % 0.5 % (0.0-2.0); EOSINOPHILS # 0.3 10^3/ul (0.0-0.5); EOSINOPHILS % 1.1 % (0.0-7.0); HEMATOCRIT 27.2 % (37.0-47.0); HEMOGLOBIN 8.8 g/dl (12.0-16.0); LYMPHOCYTES # 1.3 10^3/ul (0.8-2.9); LYMPHOCYTES % 5.3 % (15.0-51.0); MEAN CORPUSCULAR HEMOGLOBIN 29.3 pg (29.0-33.0); MEAN CORPUSCULAR HGB CONC 32.4 g/dl (32.0-37.0); MEAN CORPUSCULAR VOLUME 90.7 fl (82.0-101.0); MONOCYTES % 8.1 % (0.0-11.0); NEUTROPHIL # 20.3 10^3/ul (1.6-7.5); NEUTROPHILS % 84.1 % (39.0-77.0); PLATELET COUNT 340 10^3/UL (140-415); RED CELL DISTRIBUTION WIDTH 16.2 % (11.5-14.5)
[2017-08-18 06:06] LABS: ANION GAP 18 (8-16); BLOOD UREA NITROGEN 54 mg/dl (7-20); CALCIUM 8.2 mg/dl (8.4-10.2); CARBON DIOXIDE 22 mmol/L (21-31); CHLORIDE 101 mmol/L (97-110); CREATININE 4.62 mg/dl (0.44-1.00); GLUCOSE 76 mg/dl (70-220); PHOSPHORUS 8.2 mg/dl (2.5-4.9); POTASSIUM 4.9 mmol/L (3.5-5.1); SODIUM 136 mmol/L (135-144)
[2017-08-18 06:24] LABS: POSITIVE DIFF @See below
[2017-08-18 08:07] LABS: AMMONIA < 9 umol/l (9-30)
[2017-08-18] MEDS: LEVETIRACETAM 500 MG (PMX) 100 ML IVPB (08:32)
[2017-08-18] MEDS: SODIUM HYPOCHLORITE 1/40% 1L IRRIG IRR ×2 (08:44→12:56)
[2017-08-18] MEDS: GABAPENTIN 100 MG CAP PO ×2 (08:45→12:55)
[2017-08-18] MEDS: NIFEdipine (XL) 60 MG TAB PO (08:47)
[2017-08-18] MEDS: CLOPIDOGREL 75 MG TAB PO ×2 (08:47→12:55)
[2017-08-18] MEDS: FAMOTIDINE 20 MG TAB PO ×2 (08:47→12:55)
[2017-08-18] MEDS: MULTIVIT/CA CARB/B CMPLX/FA TAB PO ×2 (08:48→12:55)
[2017-08-18] MEDS: BALSAM PERU/CASTOR OIL 60 GM TUBE TOP (08:48)
[2017-08-18] MEDS: PROPOFOL 100 ML IV (11:30)
[2017-08-18] MEDS: HEPARIN 1000 UNITS/ML 10 ML INJ CATHETER (12:13)
[2017-08-18] MEDS: ASPIRIN (EC) 81 MG TAB PO (12:55)
[2017-08-18] MEDS: CEFEPIME 1GM/50 ML (PMX) 50 ML IVPB (12:56)
[2017-08-18] MEDS: LORAZEPAM 2 MG INJ IV (21:19)
[2017-08-18] MEDS: morphine 10 MG INJ IV (21:20)
[2017-08-18] MEDS: morphine (DRIP) 100 MG/100 ML 100 ML IV (21:22)
[2017-08-19] MEDS: morphine (DRIP) 100 MG/100 ML 100 ML IV (09:43)
[2017-08-19] MEDS ORDERED: HALOPERIDOL LIQ (2 MG/ML) PO SYG PO (10:00)
[2017-08-19] MEDS ORDERED: HYDROmorphONE 1 MG/ML SYG IV (10:00)
[2017-08-19] MEDS ORDERED: HYOSCYAMINE 0.125 MG SUBL TAB SL (10:00)
[2017-08-19] MEDS ORDERED: GLYCOPYRROLATE 0.2 MG/ML PO SYG PO (10:00)
[2017-08-19] MEDS ORDERED: SCOPOLAMINE 1.5 MG PATCH TRANSDERM (10:00)
[2017-08-19] MEDS ORDERED: morphine 2 MG INJ IV (10:00)
[2017-08-19] MEDS ORDERED: ATROPINE 1% 5 ML OPH SL (10:00)
[2017-08-19] MEDS ORDERED: DIMETHICONE STICK TOP (10:00)
[2017-08-19] MEDS ORDERED: ARTIFICIAL TEARS 15 ML OPH BOTH EYES (10:00)
[2017-08-19] MEDS ORDERED: FENTAnyl 50 MCG/ML VIAL IV (10:00)
== END 2017-08-19 10:34 | disposition expired | DRG 870 ==
LOC: MS2 08-18 23:31 → E/R 06:21 → ICU 08:09
PROVIDERS: Internal Medicine
PROC: 5A1955Z Respiratory Ventilation, Greater than 96 Consecutive Hours (ICD-10-PCS; principal; 2017-08-13)
PROC: 6A4Z0ZZ Hypothermia, Single (ICD-10-PCS; 2017-08-13)
PROC: 5A12012 Performance of Cardiac Output, Single, Manual (ICD-10-PCS; 2017-08-13)
PROC: 30233N1 Transfusion of Nonautologous Red Blood Cells into Peripheral Vein, Percutaneous Approach (ICD-10-PCS; 2017-08-13)
PROC: 5A1D70Z Performance of Urinary Filtration, Intermittent, Less than 6 Hours Per Day (ICD-10-PCS; 2017-08-14)
PROC: 5A1D70Z Performance of Urinary Filtration, Intermittent, Less than 6 Hours Per Day (ICD-10-PCS; 2017-08-17)
PROC: 30233N1 Transfusion of Nonautologous Red Blood Cells into Peripheral Vein, Percutaneous Approach (ICD-10-PCS; 2017-08-17)
DX: A41.9 Sepsis, unspecified organism (principal); J96.01 Acute respiratory failure with hypoxia; N18.6 End stage renal disease; I50.23 Acute on chronic systolic (congestive) heart failure; G93.40 Encephalopathy, unspecified; R65.21 Severe sepsis with septic shock; E11.52 Type 2 diabetes mellitus with diabetic peripheral angiopathy with gangrene; I13.2 Hypertensive heart and chronic kidney disease with heart failure and with stage 5 chronic kidney disease, or end stage renal disease; L03.116 Cellulitis of left lower limb; L03.115 Cellulitis of right lower limb; I42.9 Cardiomyopathy, unspecified; R57.0 Cardiogenic shock; D63.8 Anemia in other chronic diseases classified elsewhere; E11.621 Type 2 diabetes mellitus with foot ulcer; E11.22 Type 2 diabetes mellitus with diabetic chronic kidney disease; E87.5 Hyperkalemia; I25.10 Atherosclerotic heart disease of native coronary artery without angina pectoris; Z51.5 Encounter for palliative care; E83.52 Hypercalcemia; E86.0 Dehydration; E11.649 Type 2 diabetes mellitus with hypoglycemia without coma; Z66 Do not resuscitate; E78.5 Hyperlipidemia, unspecified; E11.21 Type 2 diabetes mellitus with diabetic nephropathy; E11.40 Type 2 diabetes mellitus with diabetic neuropathy, unspecified; Z79.4 Long term (current) use of insulin; Z79.02 Long term (current) use of antithrombotics/antiplatelets; Z79.82 Long term (current) use of aspirin; Z99.2 Dependence on renal dialysis; Z95.5 Presence of coronary angioplasty implant and graft
CPT/HCPCS: 36415; 36430; 36600; 70450; 71045; 74018; 76775; 80048; 80053; 80061; 80202; 81001; 81003; 82140; 82150; 82270; 82550; 82553; 82570; 82803; 82962; 83036; 83540; 83615; 83690; 83735; 84100; 84300; 84443; 84484; 84560; 85014; 85018; 85025; 85610; 85730; 86703; 86706; 86803; 86850; 86900; 86901; 86920; 87040; 87081; 87340; 89190; 90935; 92950; 93005; 93306; 94002; 94003; 94640; 94770; 95819; 96374; 96375; 99285-25